=== PATIENT | male | born 1980 | race Caucasian/White ===

== ENCOUNTER 2020-12-14 08:05 | Outpatient (CLI) | payer BC, SELFPAY | END 2020-12-14 08:06 | disposition home or self-care (01) | LOC: ANHCOVIDVC 08:05 | PROVIDERS: PCP Family Medicine | DX: Z23 Encounter for immunization (principal) | CPT/HCPCS: 0001A; 91300 ==

== ENCOUNTER 2021-01-04 08:00 | Outpatient (CLI) | payer BC, SELFPAY | END 2021-01-04 08:01 | disposition home or self-care (01) | LOC: ANHCOVIDVC 08:00 | PROVIDERS: PCP Family Medicine | DX: Z23 Encounter for immunization (principal) | CPT/HCPCS: 0002A; 91300 ==